=== PATIENT | female | born 1990 | race African-American/Black ===

== ENCOUNTER 2017-04-05 15:00 | Emergency (ER) | payer MEDICARE ==
[2017-04-05 15:46] LABS: #Basophils 0.2 thou/uL (0.0-0.2); #Eosinphils 0.1 thou/uL (0.0-0.7); #Lymphocytes 3.1 thou/uL (1.20-3.40); #Monocytes 0.4 thou/uL (0.11-0.59); #Neutrophils 5.3 thou/uL (1.40-6.50); %Basophils 1.8 % (0.0-1.0); %Eosinophils 0.8 % (0.0-10.0); %Lymphocytes 34.4 % (21.0-51.0); %Monocytes 4.7 % (0.0-10.0); Hematocrit 44.2 % (36.0-47.0); Mean Platelet Volume 8.4 fL (7.4-10.4); Red Blood Cell (RBC) Count 4.34 mill/uL (4.20-5.40); White Blood Cell (WBC) Count 9.1 thou/uL (4.8-10.8)
[2017-04-05 16:06] LABS: ALT (SGPT) 11 U/L (8-55); AST (SGOT) 15 U/L (5-34); Alkaline Phosphatase 77 U/L (40-150); Anion Gap 13 mmol/L (10-20); BUN (Urea Nitrogen) 10 mg/dL (7.0-18.7); Bilirubin, Total 0.6 mg/dL (0.2-1.2); Calc. Creatinine Clearance 0 mL/min (70-130); Calcium 9.7 mg/dL (7.8-10.44); Carbon Dioxide 25 mmol/L (22-29); Chloride 103 mmol/L (98-107); Estimated GFR-MDRD Greater than 90; Globulin 3.2 g/dL (2.4-3.5); Protein, Total 7.6 g/dL (6.0-8.3)
[2017-04-05 16:12] LABS: Bilirubin Negative (Negative); Blood, Urine Negative (Negative); Glucose, Urine (Dipstick) Negative (Negative); Ketone, Urine 40 mg/dL (Negative); Nitrite Negative (Negative); Protein, Urine (Dipstick) Negative (Neg-Trace); Urobilinogen 0.2 mg/dL (0.2-1.0)
[2017-04-05] MEDS ORDERED: Ondansetron HCl/PF 4 MG/2 ML Vial ONE (16:44)
== END 2017-04-05 18:15 | disposition home or self-care (01) ==
LOC: ERS 15:00
DX: E86.0 Dehydration (principal); R19.7 Diarrhea, unspecified; R11.2 Nausea with vomiting, unspecified; R10.33 Periumbilical pain; F31.9 Bipolar disorder, unspecified; F17.210 Nicotine dependence, cigarettes, uncomplicated
CPT/HCPCS: 36415; 80053; 81003; 81025; 85025; 87480; 87491; 87510; 87591; 87660; 96361; 96374; J2405

== ENCOUNTER 2017-10-30 19:22 | Emergency (ER) | payer MEDICARE ==
[2017-10-30] MEDS ORDERED: Ketorolac Tromethamine 30 MG/ML VIAL ONE (20:22)
== END 2017-10-30 22:20 | disposition home or self-care (01) ==
LOC: ERS 19:22
DX: K11.5 Sialolithiasis (principal); F31.9 Bipolar disorder, unspecified; Z87.891 Personal history of nicotine dependence
CPT/HCPCS: 96372; J1885

== ENCOUNTER 2018-07-08 22:48 | Emergency (ER) | payer MEDICARE, OTHER ==
[2018-07-08 23:14] LABS: #Basophils 0.1 thou/uL (0.0-0.2); #Eosinphils 0.1 thou/uL (0.0-0.7); #Lymphocytes 2.5 thou/uL (1.20-3.40); #Monocytes 0.5 thou/uL (0.11-0.59); #Neutrophils 7.4 thou/uL (1.40-6.50); %Basophils 1.1 % (0.0-1.0); %Eosinophils 1.3 % (0.0-10.0); %Lymphocytes 23.5 % (21.0-51.0); %Monocytes 5.1 % (0.0-10.0); Hemoglobin 13.3 g/dL (12.0-16.0); Mean Corpuscular Hemoglobin 34.1 pg (27.0-31.0); Mean Corpuscular Volume 97.3 fL (78.0-98.0); Platelet Count 260 thou/uL (130-400); White Blood Cell (WBC) Count 10.7 thou/uL (4.8-10.8)
[2018-07-08 23:26] LABS: BHCG - Serum POSITIVE (NEGATIVE); Pregs Control Background? CLEAR/WHITE (CLR/WHITE); Pregs Control Bar Appear? YES (CONTROL BAR)
[2018-07-08 23:35] LABS: Bilirubin Negative (Negative); Blood, Urine Negative (Negative); Clarity CLEAR (Clear); Glucose, Urine (Dipstick) Negative (Negative); Leukocyte Small (Negative); Nitrite Negative (Negative); Protein, Urine (Dipstick) Negative (Neg-Trace); Specific Gravity, Urine 1.027 (1.002-1.036)
[2018-07-08 23:38] LABS: ALT (SGPT) 13 U/L (8-55); AST (SGOT) 18 U/L (5-34); Albumin 4.4 g/dL (3.5-5.0); Alkaline Phosphatase 61 U/L (40-150); Anion Gap 12 mmol/L (10-20); BUN (Urea Nitrogen) 12 mg/dL (7.0-18.7); Bilirubin, Total 0.2 mg/dL (0.2-1.2); Calc. Creatinine Clearance 0 mL/min (70-130); Calcium 9.6 mg/dL (7.8-10.44); Carbon Dioxide 23 mmol/L (22-29); Chloride 104 mmol/L (98-107); Estimated GFR-MDRD Greater than 90; Globulin 3.1 g/dL (2.4-3.5); Glucose 101 mg/dL (70-105); Potassium 3.6 mmol/L (3.5-5.1); Protein, Total 7.5 g/dL (6.0-8.3); Sodium 135 mmol/L (136-145)
[2018-07-08 23:39] LABS: Bacteria/HPF Rare-Few HPF (None Seen); Hyaline Casts/LPF 0-3 HYALINE CAST LPF (0-3 Hyaline); RBC/HPF 0-3 HPF (0-3); Squamous Epithelial 0-3 HPF (0-3)
== END 2018-07-08 23:55 | disposition home or self-care (01) ==
LOC: ERS 22:48
DX: O21.9 Vomiting of pregnancy, unspecified (principal); O99.89 Other specified diseases and conditions complicating pregnancy, childbirth and the puerperium; O99.341 Other mental disorders complicating pregnancy, first trimester; F31.9 Bipolar disorder, unspecified; Z3A.01 Less than 8 weeks gestation of pregnancy; Z87.891 Personal history of nicotine dependence
CPT/HCPCS: 36415; 80053; 81003; 81015; 84703; 85025; 99284

== ENCOUNTER 2018-08-20 07:38 | Emergency (ER) | payer MEDICARE, OTHER ==
[2018-08-20 08:07] LABS: #Basophils 0.1 thou/uL (0.0-0.2); #Eosinphils 0.1 thou/uL (0.0-0.7); #Lymphocytes 1.9 thou/uL (1.20-3.40); #Monocytes 0.5 thou/uL (0.11-0.59); #Neutrophils 7.1 thou/uL (1.40-6.50); %Basophils 0.9 % (0.0-1.0); %Eosinophils 1.1 % (0.0-10.0); %Lymphocytes 19.7 % (21.0-51.0); %Monocytes 5.2 % (0.0-10.0); %Neutrophils 73.1 % (42.0-75.0); Hemoglobin 12.8 g/dL (12.0-16.0); Mean Corpuscular HGB CONC 33.7 g/dL (32.0-36.0); Mean Corpuscular Hemoglobin 32.9 pg (27.0-31.0); Mean Corpuscular Volume 97.7 fL (78.0-98.0); Mean Platelet Volume 8.1 fL (7.4-10.4); Platelet Count 243 thou/uL (130-400); RBC Distribution Width 10.9 % (11.5-14.5); Red Blood Cell (RBC) Count 3.89 mill/uL (4.20-5.40); White Blood Cell (WBC) Count 9.8 thou/uL (4.8-10.8)
[2018-08-20 09:09] LABS: Bilirubin Negative (Negative); Blood, Urine Moderate (Negative); Clarity CLOUDY (Clear); Glucose, Urine (Dipstick) Negative (Negative); Leukocyte Moderate (Negative); Nitrite Negative (Negative); Protein, Urine (Dipstick) Negative (Neg-Trace); Specific Gravity, Urine 1.018 (1.002-1.036)
[2018-08-20 09:11] LABS: Bacteria/HPF Rare-Few HPF (None Seen); Pathc Cast-AUWi Flag 0.29 (0-2.49); Squamous Epithelial 0-3 HPF (0-3)
[2018-08-20 09:39] LABS: Hyaline Casts/LPF 0-3 HYALINE CAST LPF (0-3 Hyaline)
[2018-08-20 10:13] LABS: ALT (SGPT) Less than 7 U/L (8-55); AST (SGOT) 12 U/L (5-34); Albumin 3.7 g/dL (3.5-5.0); Alkaline Phosphatase 51 U/L (40-150); Anion Gap 13 mmol/L (10-20); BUN (Urea Nitrogen) 7 mg/dL (7.0-18.7); Bilirubin, Total 0.2 mg/dL (0.2-1.2); Calc. Creatinine Clearance 0 mL/min (70-130); Calcium 9.4 mg/dL (7.8-10.44); Carbon Dioxide 18 mmol/L (22-29); Chloride 109 mmol/L (98-107); Estimated GFR-MDRD Greater than 90; Globulin 2.7 g/dL (2.4-3.5); Glucose 80 mg/dL (70-105); Potassium 3.4 mmol/L (3.5-5.1); Protein, Total 6.4 g/dL (6.0-8.3); Sodium 137 mmol/L (136-145)
--- NOTE | 2018-08-20 11:15 | ULT ---
TRANSVAGINAL PELVIC ULTRASOUND: HISTORY: Vaginal bleeding. Twelve weeks' . COMPARISON: None. TECHNIQUE: Real-time, armas-scale, color Doppler, and spectral analysis of the gravid uterus was performed with a transabdominal approach. FINDINGS: There is a single viable intrauterine with an average ultrasound age of 12 weeks 5 days. E stimated date of delivery 02/27/2019. [place]-rump length is 6.35 cm (12 weeks 5 days). heart r ate is documented at 152 beats per minute. At the free edge of the placenta, there is a sonolucent hypoechoic focus, measuring up to 2.3 cm, sug gesting a marginal abruption. Gestational sac appears normal. The ovaries are not well seen. IMPRESSION: Viable single intrauterine with a small marginal abruption, measuring 2.2 cm, which is sono lucent, suggesting chronic or resolving hematoma. POS: [facility]
== END 2018-08-20 10:32 | disposition home or self-care (01) ==
LOC: ERS 07:38
DX: O45.91 Premature separation of placenta, unspecified, first trimester (principal); O20.9 Hemorrhage in early pregnancy, unspecified; O99.341 Other mental disorders complicating pregnancy, first trimester; F31.9 Bipolar disorder, unspecified; Z87.891 Personal history of nicotine dependence; Z3A.12 12 weeks gestation of pregnancy
CPT/HCPCS: 36415; 76856; 80053; 81003; 81015; 84702; 85025; 86900; 86901; 87086; 93976

== ENCOUNTER 2018-08-20 20:46 | Emergency (ER) | payer MEDICARE, OTHER ==
[2018-08-20 21:14] LABS: #Basophils 0.1 thou/uL (0.0-0.2); #Eosinphils 0.2 thou/uL (0.0-0.7); #Monocytes 0.4 thou/uL (0.11-0.59); #Neutrophils 6.1 thou/uL (1.40-6.50); %Basophils 0.9 % (0.0-1.0); %Eosinophils 1.8 % (0.0-10.0); %Lymphocytes 30.3 % (21.0-51.0); %Monocytes 3.9 % (0.0-10.0); Hemoglobin 12.4 g/dL (12.0-16.0); Mean Corpuscular HGB CONC 33.7 g/dL (32.0-36.0); Mean Corpuscular Hemoglobin 32.7 pg (27.0-31.0); Mean Corpuscular Volume 96.8 fL (78.0-98.0); Mean Platelet Volume 8.1 fL (7.4-10.4); Platelet Count 226 thou/uL (130-400); RBC Distribution Width 10.9 % (11.5-14.5); Red Blood Cell (RBC) Count 3.79 mill/uL (4.20-5.40); White Blood Cell (WBC) Count 9.7 thou/uL (4.8-10.8)
== END 2018-08-20 22:09 | disposition home or self-care (01) ==
LOC: ERS 20:46
DX: O20.0 Threatened abortion (principal); O99.341 Other mental disorders complicating pregnancy, first trimester; F31.9 Bipolar disorder, unspecified; Z87.891 Personal history of nicotine dependence; Z79.899 Other long term (current) drug therapy
CPT/HCPCS: 36415; 76856; 80053; 81003; 81015; 84702; 85025; 86850; 86900; 86901; 87086; 93976; 99284

== ENCOUNTER 2018-09-05 12:47 | Emergency (ER) | payer MEDICARE, OTHER ==
[2018-09-05 14:48] LABS: #Basophils 0.1 thou/uL (0.0-0.2); #Eosinphils 0.1 thou/uL (0.0-0.7); #Lymphocytes 2.6 thou/uL (1.20-3.40); #Monocytes 0.5 thou/uL (0.11-0.59); #Neutrophils 7.7 thou/uL (1.40-6.50); %Basophils 0.7 % (0.0-1.0); %Eosinophils 0.9 % (0.0-10.0); %Lymphocytes 23.8 % (21.0-51.0); %Monocytes 4.6 % (0.0-10.0); Hemoglobin 11.7 g/dL (12.0-16.0); Mean Corpuscular HGB CONC 34.1 g/dL (32.0-36.0); Mean Corpuscular Hemoglobin 33.3 pg (27.0-31.0); Mean Corpuscular Volume 97.6 fL (78.0-98.0); Mean Platelet Volume 8.8 fL (7.4-10.4); Platelet Count 210 thou/uL (130-400); White Blood Cell (WBC) Count 10.9 thou/uL (4.8-10.8)
[2018-09-05 14:55] LABS: Bilirubin Negative (Negative); Blood, Urine Negative (Negative); Clarity CLEAR (Clear); Glucose, Urine (Dipstick) Negative (Negative); Leukocyte Small (Negative); Nitrite Negative (Negative); Protein, Urine (Dipstick) Negative (Neg-Trace); Specific Gravity, Urine 1.025 (1.002-1.036)
[2018-09-05 14:57] LABS: Bacteria/HPF None Seen HPF (None Seen); Hyaline Casts/LPF 4-6 HYALINE CAST LPF (0-3 Hyaline); Pathc Cast-AUWi Flag 0.68 (0-2.49)
--- NOTE | 2018-09-05 15:56 | ULT ---
OBSTETRICAL ULTRASOUND: INDICATION: Suprapubic and right lower quadrant abdominal pain. COMPARISON: Prior pelvic ultrasound dated 08/20/2018. FINDINGS: There is a single live intrauterine gestation in variable presentation. The placenta is anterior in location and appears to be low-lying. The distal tip of the anterior placenta is difficult to fully see but does approach the cervical internal os and potentially may cover portions of the internal os itself, particularly on image 3. Cardiac activity is noted at 152 b.p.m. The small placental lucency involving the fundus of the uterus adjacent to the superior margin of the anterior placenta has increased in size and now measures 3.5 x 2.2 x 3.1 cm. The cervical length was approximately 4 cm. Biparietal diameter was 2.97 cm giving estimated gestational age of 15 weeks and 3 days (70th percent ile). The head circumference was 11.21 cm giving estimated gestational age of 15 weeks and 3 days (64th per centile). The abdominal circumference was 9.27 cm giving a gestational age of 15 weeks and 3 days (74th percent ile). The femur length was 1.18 cm giving estimated gestational age of 15 weeks and 3 days (66th percentile ). The average gestational age by ultrasound of 15 weeks and 2 days and estimated due date of 02/25/2019. IMPRESSION: 1. Single live intrauterine gestation with dates as above. 2. Anterior placenta with findings suggesting either a marginal placenta or a partial placenta previ a. A followup examination is recommended for further evaluation. 3. Enlarging cystic lesion seen along the superior margin of the superior aspect of the placenta. D ifferential considerations include a slightly enlarging venous george or a small placental cyst. Maria Guadalupe nued followup is recommended. POS: [facility]
[2018-09-05] MEDS ORDERED: Ondansetron PF 4 MG/2 ML Vial ONE (16:14)
[2018-09-05] MEDS ORDERED: Morphine 4 MG/ML VIAL ONE (16:14)
[2018-09-05 16:21] LABS: ALT (SGPT) 8 U/L (8-55); AST (SGOT) 14 U/L (5-34); Albumin 3.7 g/dL (3.5-5.0); Alkaline Phosphatase 47 U/L (40-150); Anion Gap 14 mmol/L (10-20); BUN (Urea Nitrogen) 8 mg/dL (7.0-18.7); Bilirubin, Total 0.3 mg/dL (0.2-1.2); Calc. Creatinine Clearance 0 mL/min (70-130); Calcium 9.1 mg/dL (7.8-10.44); Carbon Dioxide 19 mmol/L (22-29); Chloride 106 mmol/L (98-107); Estimated GFR-MDRD Greater than 90; Globulin 2.3 g/dL (2.4-3.5); Glucose 68 mg/dL (70-105); Potassium 3.6 mmol/L (3.5-5.1); Sodium 135 mmol/L (136-145)
--- NOTE | 2018-09-05 18:40 | MRI ---
MRI ABDOMEN WITHOUT CONTRAST 09/05/18 HISTORY: Lower pelvic pain since 9 a.m. COMPARISON: None. FINDINGS: The appendix is retrocecal and is normal and has a craniad course. Small T2 hyperintense, T1 peripher ally hyperintense mass at the left craniad margin of the placenta likely a resolving and resorbing pl acenta abruption as previously described back in August. Aortic contour is nonaneurysmal. No periaortic adenopathy. The placental edge is away from the cervix approximately 5 cm. No placenta previa or low lying placen ta. There is what appears to be a posterior uterine body fibroid. IMPRESSION: 1. Normal appendix. 2. Resolving craniad left sided placental margin abruption. 3. No placenta previa. POS: HOME
== END 2018-09-05 18:58 | disposition home or self-care (01) ==
LOC: ERS 12:47
DX: O26.852 Spotting complicating pregnancy, second trimester (principal); O34.11 Maternal care for benign tumor of corpus uteri, first trimester; D25.9 Leiomyoma of uterus, unspecified; F31.9 Bipolar disorder, unspecified; Z87.891 Personal history of nicotine dependence; Z79.899 Other long term (current) drug therapy; Z3A.15 15 weeks gestation of pregnancy
CPT/HCPCS: 36415; 74181; 76805; 80053; 81003; 81015; 84702; 85025; 86900; 86901; 87086; 96374; 96375; J2270; J2405

== ENCOUNTER 2019-01-02 11:31 | Day surgery (SDC) | payer MEDICARE, OTHER ==
[2019-01-02 11:53] VITALS: BMI 31.8
--- NOTE | 2019-01-02 13:41 | ULT ---
US [facility] History: 32 weeks intrauterine . Bleeding. Comparison: None. Findings: Real-time grayscale, color, and spectral analysis of the pelvis performed transabdominal ap proach. Cervix is closed measuring 4.2 cm in length. The placenta is anterior. No placenta previa. The presen tation is cephalic. Heart rate documented at 135 bpm. Adequate amniotic fluid. Average ultrasound age is 32 weeks 0 day with estimated date of delivery February 27, 2019. Estimated f etal weight is 4 lbs. 1 oz., 39th percentile Biometry: Biparietal diameter: 7.92 cm, 31 weeks 6 day Head circumference: 29.15 cm, 32 week 1 day Abdominal circumference: 27.35 cm, 21 week 3 day Femur length: 6.28 cm, 32 week 4 day AUDREY: 9.4 cm Impression: Normal single viable intrauterine .
--- NOTE | 2019-01-02 21:33 | SS ---
DATE OF ADMISSION: 01/02/2019 DATE OF DISCHARGE: 01/02/2019 REGULAR PHYSICIAN: Rissa Antonio DO EVALUATING PHYSICIAN: Dennis Juan MD CHIEF COMPLAINT: Spotting at home. HISTORY OF PRESENT ILLNESS: Ms. Kelsey is a 28-year-old white G2, P1-0-0-1 with an estimated date of confinement of 02/28/2019, who presents complaining of light spotting over the last 24 hours. She does note occasional cramping. She denies ruptured membranes. Her care has been with Dr. Antonio and has been complicated by first and second trimester bleeding. She states her last ultrasound was 4 weeks ago and she said it was normal. PAST OBSTETRICAL HISTORY: Vaginal delivery x1 at term. PAST MEDICAL HISTORY: None. PAST SURGICAL HISTORY: None. CURRENT MEDICATIONS: vitamins, iron, and Diclegis p.r.n. ALLERGIES: VANCOMYCIN, WHICH SHE STATES MAKES HER ITCH. SOCIAL HISTORY: Denies tobacco, alcohol, or drug use. FAMILY HISTORY: Unremarkable. REVIEW OF SYSTEMS: Denies nausea, vomiting, fever, chills, ruptured membranes, or decreased movement. PHYSICAL EXAMINATION: VITAL SIGNS: In triage, her vital signs are stable and she is afebrile. GENERAL: She is pleasant and in no distress. ABDOMEN: Soft, nontender, and gravid. heart tones were stable. No regular uterine contractions were seen. Ultrasound demonstrates a cephalic fetus with an anterior placenta and there is no evidence of placenta previa. The cervix is 4.2 cm in length and there is adequate amniotic fluid. Biometry is consistent with her stated gestational age. Sterile speculum exam done after the ultrasound demonstrates a closed cervix with no blood in the vagina. ASSESSMENT: 1. Thirty-two week intrauterine . 2. No evidence of third trimester bleeding at this time. PLAN: The patient will be dismissed to home. She was given precautions and reassured. Dr. Antonio was notified. She states that she has an appointment with Dr. Antonio next week. Job ID: [id number]
== END 2019-01-02 13:57 | disposition home health service (06) ==
LOC: L&D/OP 11:31
PROVIDERS: ATTEND Obstetrics & Gynecology
DX: O26.853 Spotting complicating pregnancy, third trimester (principal); Z3A.32 32 weeks gestation of pregnancy; Z79.899 Other long term (current) drug therapy; Z88.1 Allergy status to other antibiotic agents
CPT/HCPCS: 76815; 99283

== ENCOUNTER 2019-02-09 13:08 | Day surgery (SDC) | payer MEDICARE, OTHER ==
[2019-02-09 13:44] VITALS: BP 139/78; TEMP 98
[2019-02-09 13:48] VITALS: BMI 31.8
[2019-02-09] MEDS ORDERED: hydrALAZINE 20 MG/ML VIAL SLOW IVP PRN (14:25)
[2019-02-09] MEDS ORDERED: Acetaminophen 500 MG TAB PO SCH (14:30)
--- NOTE | 2019-02-09 14:31 | PDOC.EVN ---
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 Had on/off REYNOSO recently. No VB, no DAGMAR pain, unclear "spots in eyes". She was told of these sxs at last eval last week, with eval negative then. Review of Systems: Contipation, white persistent vag dsch, no gush of fluid Past medical: anxiety, no meds; stable Social: noted pos THC use Surgical: T&A Physical: 139/78 128/78 afebrile PAMELA abd soft NT CX pending Monitors: FHTS cat 1/reactive; noCTX on toco Assessment and plan: 37 weeks 2 days here for BP check, BPs ok so edie 1. I have ordered CMP, CBC, Urine protein/CR ratio 2. Serial BPs 3. Tylenol for REYNOSO at this time 4. NST reactive
--- NOTE | 2019-02-09 14:31 | PDOC.FPROB ---
FMR OB H&P: HPI - History of Present Illness Chief Complaint: Headache History of Present Illness: 28 yo @ 37.2 wk presents with concern for blood pressure. Notes BP of 125/95, 118/86 at home in addition to headache, intermittent stars in vision, and dizziness this morning. She notes she was told to check BP BID and that in clinic last week she had BP systolic in 160s prompting a pre-E workup that was negative. Do not have access to these records. Denies swelling, abdominal pain. dysuria, VB. Reports clear/white vaginal discharge that is unchanged throughout . Primary Care Physician: Paco FMR OB H&P: Current - Care : 2 Para: 1 Gestational age: 37.2 Due date: 02/28/2019 - OB Labs Blood type: A RH: positive Antibody Screen: negative HIV: negative RPR: negative HepBsAg: negative Rubella: immune Urine drug screen: positive (THC) Gonorrhea: negative Chlamydia: negative Pap Smear: NILM 1 hour gtt: 115 GBS: negative FMR OB H&P: History - Past Medical History PMH: Anxiety - OB History OB History: Subchorionic hemorrhage in 1st trimester - Surgical History Sx History: Tonsillectomy - Social History Social History: Denies current tobacco, alcohol, drug use. Hx of THC use. Former smoker. - Family History Family History: Nephew had Maybell de Arias syndrome FMR OB H&P: Medications - Current Home Medications: Medication Instructions Recorded Confirmed Type Doxylamine Succinate/Vit B6 1 tab PO PRN PRN 01/02/19 02/09/19 History [Jan SINGLETON] Ferrous Sulfate 324 mg PO DAILY 02/09/19 02/09/19 History Vitamin 1 tablet PO DAILY 02/09/19 02/09/19 History Allergies/Adverse Reactions: Allergies Allergy/AdvReac Type Severity Reaction Status Date / Time vancomycin Allergy Intermediate Hives Verified 01/02/19 11:54 FMR OB H&P: ROS - Review of Systems General: denies: fever/chills Eyes: reports: vision changes. denies: double vision ENT: denies: nasal congestion Cardiovascular: denies: palpitation, edema Respiratory: denies: congestion, shortness of breath Gastrointestinal: reports: constipation. denies: abdominal pain, nausea, vomiting, diarrhea Genitourinary (Female): reports: vaginal discharge. denies: dysuria, vaginal pain, vaginal bleeding, contractions Musculoskeletal: denies: pain, swelling Neurologic: reports: headache. denies: weakness Integumentary: denies: rash, lesions Psychological: reports: anxiety. denies: depression FMR OB H&P: Vital Signs - Maternal Vital signs: Vital Signs - First Documented Temp Pulse Resp BP 98.0 F 98 18 139/78 02/09/19 13:26 02/09/19 13:26 02/09/19 13:26 02/09/19 13:26 - Heart Tones Baseline: 140 Variability: moderate Acceleration: present Deceleration: absent Rew contractions every: none FMR OB H&P: Physical Exam - Physical Exam General: NAD (anxious) HEENT: normocephalic and atraumatic Heart: RRR, normal S1/S2, no edema General: CTAB, no respiratory distress, no wheezing Abdomen: soft, gravid, non-tender Skin: good tugor, capillary refill <2 seconds Lymphatic: no unusual bruising or bleeding Psychiatric: intact recent and remote memory - Pelvic Exam SVE: 1/thick/-2, posterior FMR OB H&P: A/P - Problem List (1) Intrauterine Current Visit: Yes Status: Acute Code(s): Z34.90 - ENCNTR FOR SUPRVSN OF NORMAL , UNSP, UNSP TRIMESTER Discussion: Date/Time: 02/09/19 1420 sIUP - concern for BP - initial BPs here are 139/78, 128/78, will continue to monitor - pending CBC, CMP, urine studies for pre-e workup - will give tylenol for headache - FHT reassuring Anxiety - previously on zoloft, pt reports well controlled without medication THC use in Hx subchorionic hemorrhage in 1st trimester Patient has not had any severe range pressures here or at home today. Will monitor with serial BPs and await lab results. IOL scheduled for Sunday. This H&P was discussed with Dr. Way who agrees with the above documentation and plan.
[2019-02-09 14:43] LABS: #Basophils 0.1 thou/uL (0.0-0.2); #Eosinphils 0.1 thou/uL (0.0-0.7); #Lymphocytes 2.5 thou/uL (1.20-3.40); #Monocytes 0.8 thou/uL (0.11-0.59); #Neutrophils 8.5 thou/uL (1.40-6.50); %Basophils 0.7 % (0.0-1.0); %Eosinophils 1.2 % (0.0-10.0); %Lymphocytes 20.9 % (21.0-51.0); %Monocytes 6.3 % (0.0-10.0); Hemoglobin 11.9 g/dL (12.0-16.0); Mean Corpuscular HGB CONC 34.8 g/dL (32.0-36.0); Mean Corpuscular Hemoglobin 33.1 pg (27.0-31.0); Mean Corpuscular Volume 95.2 fL (78.0-98.0); Mean Platelet Volume 8.6 fL (7.4-10.4); Platelet Count 206 thou/uL (130-400); RBC Distribution Width 11.7 % (11.5-14.5); Red Blood Cell (RBC) Count 3.61 mill/uL (4.20-5.40)
[2019-02-09 15:04] LABS: ALT (SGPT) 8 U/L (8-55); AST (SGOT) 12 U/L (5-34); Albumin 3.3 g/dL (3.5-5.0); Alkaline Phosphatase 113 U/L (40-150); Anion Gap 13 mmol/L (10-20); BUN (Urea Nitrogen) 7 mg/dL (7.0-18.7); Bilirubin, Total 0.3 mg/dL (0.2-1.2); Calc. Creatinine Clearance 213 mL/min (70-130); Carbon Dioxide 21 mmol/L (22-29); Chloride 105 mmol/L (98-107); Estimated GFR-MDRD Greater than 90; Globulin 2.9 g/dL (2.4-3.5); Glucose 76 mg/dL (70-105); Potassium 3.8 mmol/L (3.5-5.1); Protein, Total 6.2 g/dL (6.0-8.3); Sodium 135 mmol/L (136-145)
[2019-02-09 15:30] LABS: Creatinine, Urine 137.69 mg/dL (47-110)
--- NOTE | 2019-02-09 15:43 | PDOC.EVN ---
Event Note - Event Note Event Note: Labs and urine studies reviewed and wnl. No elevated BPs, consistently around 115-120 systolic. No concern for Pre-E based on evaluation this afternoon. Patient given reassurance and return precautions given. May take tylenol prn and miralax for constipation. Recommended patient follow up with Dr. Singh tomorrow. She already has IOL scheduled for Sunday night.
--- NOTE | 2019-02-09 15:44 | PDOC.EVN ---
Event Note - Event Note Event Note: Labs ok BPs ok OK for recheck in 24 hours
== END 2019-02-09 15:46 | disposition home or self-care (01) ==
LOC: L&D/OP 13:08
PROVIDERS: ATTEND Obstetrics & Gynecology
DX: O99.89 Other specified diseases and conditions complicating pregnancy, childbirth and the puerperium (principal); R51 Headache; R42 Dizziness and giddiness; N89.8 Other specified noninflammatory disorders of vagina; O99.343 Other mental disorders complicating pregnancy, third trimester; F41.9 Anxiety disorder, unspecified; Z87.59 Personal history of other complications of pregnancy, childbirth and the puerperium; Z87.891 Personal history of nicotine dependence; Z3A.37 37 weeks gestation of pregnancy
CPT/HCPCS: 36415; 80053; 82570; 84156; 85025; 99284

== ENCOUNTER 2019-02-11 02:04 | Inpatient (IN) | payer MEDICARE, OTHER ==
[2019-02-11 02:45] VITALS: BMI 33.0
[2019-02-11] MEDS: Lactated Ringer's 1,000 ML IV SCH ×3 (03:10→13:09)
[2019-02-11] MEDS ORDERED: Butorphanol Tartrate 1 MG/ML VIAL ONE (04:56)
[2019-02-11] MEDS: Butorphanol Tartrate 1 MG/ML VIAL SLOW IVP PRN ×3 (05:01→08:20)
--- NOTE | 2019-02-11 06:32 | PDOC.LDHP ---
Labor and Delivery H&P Chief complaint: contractions HPI: with mod variables 3-4 cm LOP presentation. had induction sched for tomorrow for gest htn Current gestational age (weeks): 37 Due date: 02/28/19 Dating criteria: last menstrual period, first trimester ultrasound Grav: 2 Para: 1 Current complications: gestational hypertension Abnormal US findings: No Current medications: pre- vitamins Allergies/Adverse Reactions: Allergies Allergy/AdvReac Type Severity Reaction Status Date / Time vancomycin Allergy Intermediate Hives Verified 01/02/19 11:54 Social history: drug use (thc in ) - Physical Exam Vital signs reviewed and normal: yes General: NAD, resting, breathing through contractions Heart: RRR Lungs: CTAB Abdomen: NTTP Extremeties: no edema FHT: category 2, variable decelerations [place] contractions every: 5 - Vaginal Exam cm dilated: 3 Effacement: 75% Station: -3 - OB Labs Blood type: A RH: positive Antibody Screen: negative HIV: negative RPR: negative HEPSAg: negative 1 hour GCT: negative GBS: negative Urine drug screen: positive Rubella: immune - Assessment L&D Assessment: term patient in labor - Plan Plan: admit to L&D, labor augmentation if indicated, anesthesia consult for pain management
[2019-02-11] MEDS ORDERED: hydrALAZINE 20 MG/ML VIAL SLOW IVP PRN ×2 (06:41→10:14)
[2019-02-11] MEDS ORDERED: HYDROcodone/Acetaminophen 5/325 mg Tablet PO PRN ×2 (06:41)
[2019-02-11] MEDS ORDERED: NS / Oxytocin 40 units/1000ml 1,000 ML IV PRN (06:41)
[2019-02-11] MEDS ORDERED: Lidocaine 1% (PF) 30 ML VIAL SC PRN (06:41)
[2019-02-11] MEDS ORDERED: NS w/ Oxytocin 10 units 500 ML IV SCH (06:41)
[2019-02-11] MEDS ORDERED: Promethazine HCl 25 MG/ML VIAL IM PRN (06:41)
[2019-02-11] MEDS ORDERED: Ondansetron PF 4 MG/2 ML Vial IVP PRN (06:41)
[2019-02-11] MEDS ORDERED: Ibuprofen 800 MG TAB PO PRN (06:41)
[2019-02-11] MEDS ORDERED: Lactated Ringer's 1,000 ML IV SCH (06:41)
[2019-02-11 07:24] LABS: Hemoglobin 13.2 g/dL (12.0-16.0); Mean Corpuscular HGB CONC 34.1 g/dL (32.0-36.0); Mean Corpuscular Hemoglobin 32.1 pg (27.0-31.0); Mean Corpuscular Volume 94.2 fL (78.0-98.0); Mean Platelet Volume 10.1 fL (7.4-10.4); Platelet Count 275 thou/uL (130-400); RBC Distribution Width 11.8 % (11.5-14.5); Red Blood Cell (RBC) Count 4.11 mill/uL (4.20-5.40); White Blood Cell (WBC) Count 16.1 thou/uL (4.8-10.8)
[2019-02-11 08:03] LABS: Hep B Surf Ag Non-Reactive S/CO (NonReactive); Syphilis Antibody Nonreactive (Nonreactive); Syphilis Antibody Index 0.04 S/CO (<1.00 Non-Reactive)
--- NOTE | 2019-02-11 09:51 | PDOC.OPDEL ---
OB Operative/Delivery Note Delivery Dr/Surgeon: Rissa Antonio DO Pre-Delivery Diagnosis: active labor Procedure/Post Delivery Dx: spontaneous vaginal delivery Weeks gestation: 37 Anesthesia: none - Findings A Sex: male - 1 min: 7 - 5 min: 9 - Additional Findings/Plan Placenta delivered: spontaneous Repaired Obstetrical Laceration: other (small right labial laceration not repaired because hemostatic and no anesthesia) Estimated blood loss: EBL 50 cc Compilations/Other Findings: Infant in KIKO position Nuchal cord x1 Normal appearing placenta Post delivery plan: routine recovery
[2019-02-11 10:09] LABS: pH (Cord, venous) 7.41 (7.32-7.43)
[2019-02-11] MEDS ORDERED: Lanolin Ointment 7 GM TUBE TOP PRN (10:14)
[2019-02-11] MEDS ORDERED: NS / Oxytocin 40 units/1000ml 1,000 ML IV SCH (10:14)
[2019-02-11] MEDS ORDERED: Bisacodyl 10 MG SUPP PR PRN (10:14)
[2019-02-11] MEDS ORDERED: Zolpidem Tartrate 5 MG TAB PO PRN (10:14)
[2019-02-11] MEDS ORDERED: Methylergonovine 0.2 MG/ML VIAL IM PRN (10:14)
[2019-02-11] MEDS ORDERED: Preparation H Ointment 28 GM TUBE PR PRN (10:14)
[2019-02-11] MEDS ORDERED: diphenhydrAMINE 25 MG CAP PO PRN (10:14)
[2019-02-11] MEDS ORDERED: Benzocaine-Menthol 82.5 ML CAN TOP PRN (10:14)
[2019-02-11] MEDS ORDERED: Misoprostol 200 MCG TAB VAG PRN (10:14)
[2019-02-11] MEDS ORDERED: Milk Of Magnesia 30 ML UDCUP PO PRN (10:14)
[2019-02-11 11:52] LABS: Amphetamine Not Detected (NotDetected); Barbiturates Screen Not Detected (NotDetected); Benzodiazepine Screen Not Detected (NotDetected); Cocaine Metabolite Screen Not Detected (NotDetected); Medtox Control Line Valid? VALID (VALID); Medtox Reader # READER 4; Methadone Not Detected (NotDetected); Methamphetamine Not Detected (NotDetected); Opiate Screen Not Detected (NotDetected); Oxycodone Screen Not Detected (NotDetected); Phencyclidine (PCP) Not Detected (NotDetected); THC/Cannabinoid Screen Not Detected (NotDetected); Tricyclic Screen Not Detected (NotDetected)
[2019-02-11] MEDS: Ibuprofen 800 MG TAB PO SCH ×2 (12:58→21:01)
[2019-02-11] MEDS: Docusate Calcium (SURFAK) 240 MG CAP PO SCH (21:01)
[2019-02-12] MEDS: HYDROcodone/Acetaminophen 5/325 mg Tablet PO PRN ×2 (05:02→12:33)
[2019-02-12] MEDS: Ibuprofen 800 MG TAB PO SCH ×3 (05:02→20:59)
[2019-02-12 05:51] LABS: Hemoglobin 11.6 g/dL (12.0-16.0); Mean Corpuscular HGB CONC 33.9 g/dL (32.0-36.0); Mean Corpuscular Volume 94.4 fL (78.0-98.0); Mean Platelet Volume 9.4 fL (7.4-10.4); Platelet Count 203 thou/uL (130-400); RBC Distribution Width 11.8 % (11.5-14.5); Red Blood Cell (RBC) Count 3.63 mill/uL (4.20-5.40); White Blood Cell (WBC) Count 21.2 thou/uL (4.8-10.8)
[2019-02-12] MEDS: Lactated Ringer's 1,000 ML IV SCH ×3 (06:13→16:49)
--- NOTE | 2019-02-12 08:03 | PDOC.PP ---
Post Progress Note Post Day #: 1 Subjective: No concerns. Minimal pain and lochia. Primarily formula feeding. Does not plan to continue breast feeding. PO intake tolerated: yes Flatus: yes Ambulation: yes Vital Signs (12 hours) Temp Pulse Resp BP Pulse Ox 02/12/19 04:55 97.9 F 77 18 116/77 02/12/19 00:00 97.4 F L 95 18 130/72 02/11/19 21:00 98 Weight Weight 205 lb - Physical Examination General: NAD Cardiovascular: RRR Respiratory: non-labored breathing Abdominal: no distention, appropriately TTP Fundus firm & at: below umbilics Extremities: negative homans (B) Neurological: no gross focal deficits Psychiatric: A&Ox3, normal affect Result Diagrams: 02/12/19 05:18 Additional Labs: Post Labs Blood Type A POSITIVE 02/11/19 02:41 Hep Bs Antigen Non-Reactive S/CO (NonReactive) 02/11/19 02:41 (1) (spontaneous vaginal delivery) Code(s): O80 - ENCOUNTER FOR FULL-TERM UNCOMPLICATED DELIVERY Status: Acute - Assessment/Plan PPD1 VSSAF- BPs wnl UDS negative Mild anemia, continue PNV Plan for d/c home today with s/p circumcision
[2019-02-12] MEDS: Docusate Calcium (SURFAK) 240 MG CAP PO SCH ×2 (09:26→20:59)
[2019-02-12] MEDS: Prenatal Vitamin 1 TAB PO SCH (09:26)
[2019-02-13] MEDS: Ibuprofen 800 MG TAB PO SCH (05:01)
--- NOTE | 2019-02-13 07:53 | PDOC.PP ---
Post Progress Note Post Day #: 2 Subjective: No concerns. Minimal pain and moderate lochia. D/C held due to baby's phototherapy. PO intake tolerated: yes Flatus: yes Ambulation: yes Vital Signs (12 hours) Pulse Ox 02/12/19 20:50 96 Weight Weight 205 lb - Physical Examination General: NAD Cardiovascular: RRR Respiratory: non-labored breathing Abdominal: no distention, appropriately TTP Fundus firm & at: below umbilicus Extremities: negative homans (B) Neurological: no gross focal deficits Psychiatric: A&Ox3, normal affect Result Diagrams: 02/12/19 05:18 Additional Labs: Post Labs Blood Type A POSITIVE 02/11/19 02:41 Hep Bs Antigen Non-Reactive S/CO (NonReactive) 02/11/19 02:41 (1) (spontaneous vaginal delivery) Code(s): O80 - ENCOUNTER FOR FULL-TERM UNCOMPLICATED DELIVERY Status: Acute - Assessment/Plan PPD2 VSSAF Plan for d/c home today with infant.
[2019-02-13 08:19] VITALS: BP 115/57; TEMP 98.2
[2019-02-13] MEDS: Prenatal Vitamin 1 TAB PO SCH (09:22)
[2019-02-13] MEDS: Docusate Calcium (SURFAK) 240 MG CAP PO SCH (09:23)
== END 2019-02-13 10:45 | disposition home or self-care (01) | DRG 807 ==
LOC: L&D/OP 02:04 → L&D 06:36 → 3SW 11:42
PROVIDERS: ADMIT Obstetrics & Gynecology; ATTEND Obstetrics & Gynecology
PROC: 10E0XZZ Delivery of Products of Conception, External Approach (ICD-10-PCS; principal; 2019-02-11)
DX: O13.4 Gestational [pregnancy-induced] hypertension without significant proteinuria, complicating childbirth (principal); Z37.0 Single live birth; Z3A.37 37 weeks gestation of pregnancy; O76 Abnormality in fetal heart rate and rhythm complicating labor and delivery; D64.9 Anemia, unspecified; O70.0 First degree perineal laceration during delivery; O90.81 Anemia of the puerperium
CPT/HCPCS: 36415; 80053; 80306; 82570; 82805; 84156; 85025; 85027; 86780; 86850; 86900; 86901; 87340; 99284; 99285; J0595; J2001

== ENCOUNTER 2019-12-08 06:48 | Observation (INO) | payer MEDICARE, OTHER ==
[2019-12-08 07:11] LABS: #Basophils 0.2 thou/uL (0.0-0.2); #Eosinphils 0.1 thou/uL (0.0-0.7); #Lymphocytes 2.5 thou/uL (1.20-3.40); #Monocytes 0.8 thou/uL (0.11-0.59); #Neutrophils 11.2 thou/uL (1.40-6.50); %Basophils 1.3 % (0.0-1.0); %Eosinophils 0.7 % (0.0-10.0); %Lymphocytes 16.8 % (21.0-51.0); %Monocytes 5.1 % (0.0-10.0); %Neutrophils 76.1 % (42.0-75.0); Hemoglobin 13.4 g/dL (12.0-16.0); Mean Corpuscular HGB CONC 32.1 g/dL (32.0-36.0); Mean Corpuscular Hemoglobin 31.9 pg (27.0-31.0); Mean Corpuscular Volume 99.4 fL (78.0-98.0); Mean Platelet Volume 8.5 fL (7.4-10.4); Platelet Count 265 thou/uL (130-400); RBC Distribution Width 11.7 % (11.5-14.5); Red Blood Cell (RBC) Count 4.19 mill/uL (4.20-5.40); White Blood Cell (WBC) Count 14.8 thou/uL (4.8-10.8)
[2019-12-08 07:18] LABS: BHCG - Serum Negative (NEGATIVE); Pregs Control Background? CLEAR/WHITE (CLR/WHITE); Pregs Control Bar Appear? YES (CONTROL BAR)
[2019-12-08 07:29] LABS: ALT (SGPT) 14 U/L (8-55); AST (SGOT) 15 U/L (5-34); Albumin 4.2 g/dL (3.5-5.0); Alkaline Phosphatase 94 U/L (40-110); Anion Gap 13 mmol/L (10-20); BUN (Urea Nitrogen) 10 mg/dL (7.0-18.7); Bilirubin, Total 0.8 mg/dL (0.2-1.2); Calc. Creatinine Clearance 0 mL/min (70-130); Carbon Dioxide 23 mmol/L (22-29); Chloride 104 mmol/L (98-107); Estimated GFR-MDRD Greater than 90; Globulin 3.2 g/dL (2.4-3.5); Glucose 97 mg/dL (70-105); Lipase 17 U/L (8-78); Potassium 3.7 mmol/L (3.5-5.1); Protein, Total 7.4 g/dL (6.0-8.3); Sodium 136 mmol/L (136-145)
[2019-12-08] MEDS ORDERED: Morphine 4 MG/ML VIAL ONE ×2 (07:35→12:00)
[2019-12-08] MEDS ORDERED: Ondansetron PF 4 MG/2 ML Vial ONE (07:35)
[2019-12-08] MEDS ORDERED: cefTRIAXone\\ROCEPHIN 250 MG VIAL ONE (09:53)
[2019-12-08] MEDS ORDERED: Azithromycin 250 MG TAB ONE (09:58)
[2019-12-08 10:42] LABS: Bacteria/HPF None Seen HPF (None Seen); Bilirubin Negative (Negative); Blood, Urine Negative (Negative); Clarity Clear (Clear); Glucose, Urine (Dipstick) Normal (Negative); Leukocyte 25 Leu/uL (Negative); Nitrite Negative (Negative); Protein, Urine (Dipstick) Negative (Neg-Trace); RBC/HPF 0-3 HPF (0-3); Squamous Epithelial 0-3 HPF (0-3); Urobilinogen Normal mg/dL (Less than 2)
[2019-12-08] MEDS ORDERED: Ketorolac Tromethamine 30 MG/ML VIAL ONE (12:00)
[2019-12-08] MEDS ORDERED: Doxycycline 100 MG CAP PO SCH (12:30)
--- NOTE | 2019-12-08 12:42 | CT ---
CT ABDOMEN AND PELVIS PERFORMED WITH CONTRAST ENHANCEMENT: HISTORY: RIGHT lower quadrant abdominal pain. FINDINGS: The lung bases are clear. The liver, spleen, pancreas, and gallbladder regions appear unremarkable. Right and left adrenal glands and right and left kidneys are normal in size. There is no significant periaortic or mesenteric adenopathy. CT OF PELVIS PERFORMED WITH CONTRAST ENHANCEMENT: The appendix is normal in size. It is retrocecal in location. Somewhat prominent follicles are seen involving the adnexa. No evidence of any significant free fluid. No adenopathy or mass. IMPRESSION: 1. Normal appendix. 2. No acute findings of the abdomen or pelvis. POS: [facility]
--- NOTE | 2019-12-08 12:43 | ULT ---
ULTRASOUND PELVIC ULTRASOUND TRANSVAGINAL DOPPLER DUPLEX: DATE: 12/08/2019 HISTORY: 29-year-old female with pelvic pain, right greater than left, and "PID" TECHNIQUE: Transabdominal transducer and endovaginal transducer used to visualize intrapelvic contents with armas scale, color-flow, and spectral analysis. FINDINGS: Uterus: 11 x 5 x 4.5 cm. Endometrial stripe: 0.5 cm (5 mm) No moderate sized or large uterine leiomyoma visualized. Right ovary: 4.5 x 3 x 2.5 cm. Left ovary: 4 x 4 by 2.5 cm. 3 x 2 x 2.5 cm right adnexal cystic lesion, somewhat complex with multiple internal echoes and/or sep tations. 2.5 x 2.5 x 2 cm left adnexal cystic lesion with a few septations. Little or no free fluid in the cul-de-sac. IMPRESSION: 1) a 3 cm complex right adnexal cystic lesion, probably a hemorrhagic ovarian cyst 2) a 2.5 cm left ovarian cyst 3) otherwise negative
[2019-12-08 15:13] VITALS: BMI 33.0
[2019-12-08] MEDS ORDERED: Iopamidol-370 76% 500 ML 1 ML ONE (15:31)
[2019-12-08] MEDS ORDERED: Ibuprofen 800 MG TAB PO SCH (16:00)
[2019-12-08] MEDS ORDERED: Acetaminophen 500 MG TAB PO SCH (18:00)
[2019-12-08 19:47] VITALS: BP 124/73; TEMP 98
--- NOTE | 2019-12-08 23:14 | HP ---
HISTORY OF PRESENT ILLNESS: The patient is a 29-year-old G2, P2 female with a several days history of right lower quadrant pain that began yesterday. She was evaluated downstairs in the emergency room and was empirically diagnosed with PID. Given the level of her pain downstairs, there was some concern about sending her home without observation and we were called for help. The patient was admitted to observation by myself and upon arrival to the floor, the patient was evaluated. She reports that her pain is much better with 15 mg of Toradol and 4 mg of morphine that had been given over the previous 4 hours. She also reports a history of chlamydia about 8 years ago, but denies any known sexually transmitted infection since. She does admit to a new sexual partner recently. She reports that she has noticed a change in her vaginal discharge that has changed in color and odor prior to the onset of her symptoms. She does report that she just finished her period a few days ago. In her evaluation downstairs, CT scan and ultrasound were both performed, which did not find any acute findings; however, did find a cyst on her right ovary that is described as being like a probably a hemorrhagic ovarian cyst on the right side with the dimensions of cystic measuring about 3 cm and endometrium being about 5 mm. The patient denies fever. She denies headache, chest pain, shortness of breath, nausea, or vomiting. PAST MEDICAL HISTORY: Negative. PAST SURGICAL HISTORY: Tonsillectomy and wisdom tooth surgery. PSYCHIATRIC HISTORY: Bipolar disorder, depression. SOCIAL HISTORY: The patient reports social drinking on a weekly basis. Reports former tobacco use and denies drug use. ALLERGIES: VANCOMYCIN. CURRENT MEDICATIONS: None. She did receive a dose of Rocephin, cefoxitin and doxycycline downstairs in the emergency room and total of 8 mg of morphine, and 15 mg of Toradol. PHYSICAL EXAMINATION: VITAL SIGNS: Blood pressure on the floor 128/83, temperature 99, pulse 91, respiratory rate of 18, saturating 98% on room air. GENERAL: She appears to be in no acute distress. She is alert, oriented, cooperative, and pleasant to interact with. HEENT: Head is normocephalic, atraumatic. LUNGS: Clear to auscultation bilaterally. HEART: Has regular rate and rhythm. ABDOMEN: Soft. She used to have some diffuse tenderness focused primarily in her lower quadrants particularly in midline. EXTREMITIES: Nontender, nonedematous. : Exam has been deferred as the patient reports that she had a exam with the ER physician and was exquisitely tender on the digital exam. ASSESSMENT AND PLAN: The patient is a 29-year-old female with likely diagnosis of pelvic inflammatory disease given the exquisite tenderness that she has been having on physical exam, and elevated white count of 14,000. The patient has been treated initially and has been admitted to the hospital for observation due to the significant pain the patient was experiencing. On arrival, the patient appears to be doing much better from a pain standpoint. She does not have any signs or symptoms of being excessively ill. We will give her 800 of ibuprofen right now and a gram of Tylenol and re-evaluate in a couple of hours and see how she is feeling. If she continues to feel like her pain is under decent control, the patient can be discharged home with oral antibiotics. She has been counseled to follow up in a couple of days with a [facility] [employer] provider or her primary provider to ensure that she continues to improve. She also was counseled that should she be discharged home today that she needs to return if she starts having fever, increasing pain, or beginning to feel really sick. Anticipate discharge either this evening or tomorrow morning. Pt had a good response with tylenol/ibuprofen. Being discharged home with doxycycline 100bid x10 days and flagyl 500mg po bid x10 days needs to f/u with Dr Antonio in one wk Job ID: [id number] [id number]
[2019-12-09 21:11] LABS: Chlamydia by PCR DETECTED (NotDetected); GC by PCR DETECTED (NotDetected)
== END 2019-12-08 20:10 | disposition home or self-care (01) ==
LOC: ERS 06:48 → 3SW 15:00
PROVIDERS: ADMIT Obstetrics & Gynecology; ATTEND Obstetrics & Gynecology
DX: N83.202 Unspecified ovarian cyst, left side (principal); N83.8 Other noninflammatory disorders of ovary, fallopian tube and broad ligament; F31.9 Bipolar disorder, unspecified; Z87.891 Personal history of nicotine dependence; Z88.1 Allergy status to other antibiotic agents
CPT/HCPCS: 74177; 76830; 76856; 80053; 83690; 84703; 85025; 87077; 87086; 87480; 87491; 87510; 87591; 87660; 96361; 96365; 96375; 96376; 99285; G0378 ×2; 81003; 81015; J0694; J0696; J1885; J2270; J2405; Q9967

== ENCOUNTER 2020-11-28 08:29 | Emergency (ER) | payer MEDICARE, OTHER ==
[2020-11-28] MEDS ORDERED: Ketorolac Tromethamine 30 MG/ML VIAL ONE (09:00)
== END 2020-11-28 09:30 | disposition home or self-care (01) ==
LOC: ERS 08:29
DX: S93.401A Sprain of unspecified ligament of right ankle, initial encounter (principal); Z87.891 Personal history of nicotine dependence; X50.1XXA Overexertion from prolonged static or awkward postures, initial encounter
CPT/HCPCS: 96372; J1885

== ENCOUNTER 2023-12-12 09:17 | Day surgery (SDC) | payer MEDICARE, MEDICAID ==
[2023-12-11 09:48] VITALS: BMI 34.0
[2023-12-12] MEDS ORDERED: Oxymetazoline HCl 0.05% (30 ML BOT) ONE ×2 (10:56→11:29)
[2023-12-12] MEDS ORDERED: Lidocaine 1% (PF) 30 ML VIAL ONE (11:29)
[2023-12-12] MEDS ORDERED: Rocuronium Bromide 10 MG/ML (10ML VIAL) ONE (11:56)
[2023-12-12] MEDS ORDERED: Dexamethasone 20 MG/5 ML VIAL ONE (11:56)
[2023-12-12] MEDS ORDERED: Ondansetron PF 4 MG/2 ML Vial ONE (11:56)
[2023-12-12] MEDS ORDERED: PROPOFOL 200 MG/20 ML VIAL ONE (11:56)
[2023-12-12 12:03] LABS: Hematocrit 38.5 % (36.0-47.0)
[2023-12-12] MEDS ORDERED: fentaNYL 50 mcg/mL 1 mL Vial ONE ×2 (12:57→13:38)
[2023-12-12] MEDS ORDERED: HYDROcodone/Acetaminophen 5/325 mg Tablet ONE (14:04)
== END 2023-12-12 14:49 | disposition home or self-care (01) ==
LOC: SDC 09:17
PROVIDERS: ATTEND Otolaryngology Plastic Surgery within the Head & Neck
PROC: 09BV8ZZ Excision of Left Ethmoid Sinus, Via Natural or Artificial Opening Endoscopic (ICD-10-PCS; principal; 2023-12-12)
PROC: 09BW8ZZ Excision of Right Sphenoid Sinus, Via Natural or Artificial Opening Endoscopic (ICD-10-PCS; 2023-12-12)
PROC: 09BX8ZZ Excision of Left Sphenoid Sinus, Via Natural or Artificial Opening Endoscopic (ICD-10-PCS; 2023-12-12)
PROC: 09BQ8ZZ Excision of Right Maxillary Sinus, Via Natural or Artificial Opening Endoscopic (ICD-10-PCS; 2023-12-12)
PROC: 09BR8ZZ Excision of Left Maxillary Sinus, Via Natural or Artificial Opening Endoscopic (ICD-10-PCS; 2023-12-12)
PROC: 09BS8ZZ Excision of Right Frontal Sinus, Via Natural or Artificial Opening Endoscopic (ICD-10-PCS; 2023-12-12)
PROC: 09BT8ZZ Excision of Left Frontal Sinus, Via Natural or Artificial Opening Endoscopic (ICD-10-PCS; 2023-12-12)
PROC: 09BU8ZZ Excision of Right Ethmoid Sinus, Via Natural or Artificial Opening Endoscopic (ICD-10-PCS; 2023-12-12)
PROC: 09TL8ZZ Resection of Nasal Turbinate, Via Natural or Artificial Opening Endoscopic (ICD-10-PCS; 2023-12-12)
PROC: 09TL8ZZ Resection of Nasal Turbinate, Via Natural or Artificial Opening Endoscopic (ICD-10-PCS; 2023-12-12)
DX: J34.3 Hypertrophy of nasal turbinates (principal); J32.4 Chronic pansinusitis; J34.89 Other specified disorders of nose and nasal sinuses; J33.9 Nasal polyp, unspecified; Z90.89 Acquired absence of other organs; Z88.1 Allergy status to other antibiotic agents
CPT/HCPCS: 30140; 31240; 31257; 31267; 31276; 85014; J1100; J2001; J2405; J2704; J3010

== ENCOUNTER 2023-12-20 13:13 | Inpatient (IN) | payer MEDICARE, MEDICAID ==
[2023-12-20 14:20] LABS: #Basophils 0.03 10x3/uL (0.0-0.2); %Basophils 0.4 % (0.0-1.0); %Eosinophils 0.7 % (0.0-10.0); %Lymphocytes 43.3 % (21.0-51.0); %Monocytes 6.5 % (0.0-10.0); %Neutrophils 48.9 % (42.0-75.0); Hematocrit 40.2 % (36.0-47.0); Hemoglobin 13.8 g/dL (12.0-16.0); Mean Corpuscular HGB CONC 34.3 g/dL (32.0-36.0); Mean Corpuscular Hemoglobin 32.2 pg (27.0-31.0); Mean Corpuscular Volume 93.9 fL (78.0-98.0); Mean Platelet Volume 10.6 fL (7.4-10.4); Platelet Count 307 10x3/uL (130-400); RBC Distribution Width 12.5 % (11.5-14.5); Red Blood Cell (RBC) Count 4.28 mill/uL (4.20-5.40)
[2023-12-20 14:25] LABS: BHCG - Serum Negative (NEGATIVE); Pregs Control Background? CLEAR/WHITE (CLR/WHITE); Pregs Control Bar Appear? YES (CONTROL BAR)
[2023-12-20 14:30] LABS: ALT (SGPT) 8 U/L (8-55); AST (SGOT) 16 U/L (5-34); Albumin 4.2 g/dL (3.5-5.0); Alkaline Phosphatase 76 U/L (40-110); Anion Gap 13 mmol/L (10-20); BUN (Urea Nitrogen) 7 mg/dL (7.0-18.7); Bilirubin, Total 0.7 mg/dL (0.2-1.2); Calc. Creatinine Clearance 0 mL/min (70-130); Calcium 9.8 mg/dL (7.8-10.44); Carbon Dioxide 21 mmol/L (22-29); Chloride 106 mmol/L (98-107); Estimated GFR 117; Globulin 3.4 g/dL (2.4-3.5); Glucose 86 mg/dL (70-105); Potassium 3.7 mmol/L (3.5-5.1); Protein, Total 7.6 g/dL (6.0-8.3); Sodium 136 mmol/L (136-145)
[2023-12-20] MEDS ORDERED: Dexamethasone 10 MG/ML VIAL ONE (15:14)
[2023-12-20] MEDS ORDERED: Morphine 4 MG/ML VIAL ONE ×3 (15:14→22:45)
[2023-12-20 16:45] LABS: Bacteria/HPF None Seen HPF (None Seen); Bilirubin Negative (Negative); Blood, Urine Negative (Negative); CAUTI Indications for Culture Dysuria,urgency,freq; Clarity Clear (Clear); Glucose, Urine (Dipstick) Normal (Negative); Ketone, Urine 10 mg/dL (Negative); Leukocyte Negative Leu/uL (Negative); Nitrite Negative (Negative); Protein, Urine (Dipstick) Negative (Neg-Trace); RBC/HPF 0-3 HPF (0-3); Specific Gravity, Urine 1.013 (1.002-1.036); Squamous Epithelial 0-3 HPF (0-3); Urobilinogen Normal mg/dL (Less than 2); WBC/HPF 0-3 HPF (0-3)
[2023-12-20 16:47] LABS: Urine Culture Reflex No No
[2023-12-21 01:08] VITALS: BMI 34.0
[2023-12-21] MEDS ORDERED: HYDROcodone/Acetaminophen 10/325 mg Tablet PO PRN ×3 (01:25→02:36)
[2023-12-21] MEDS ORDERED: Ondansetron PF 4 MG/2 ML Vial IVP PRN (01:25)
[2023-12-21] MEDS ORDERED: Ondansetron ODT 4 MG TAB PO PRN (01:25)
[2023-12-21] MEDS ORDERED: Naloxone HCl 0.4 mg/ml Vial IV PRN (02:37)
[2023-12-21 04:43] LABS: #Basophils Less than 0.03 10x3/uL (0.0-0.2); #Eosinphils Less than 0.03 10x3/uL (0.0-0.7); %Lymphocytes 10.1 % (21.0-51.0); %Monocytes 4.1 % (0.0-10.0); %Neutrophils 85.5 % (42.0-75.0); Hematocrit 38.6 % (36.0-47.0); Hemoglobin 13.4 g/dL (12.0-16.0); Mean Corpuscular HGB CONC 34.7 g/dL (32.0-36.0); Mean Corpuscular Hemoglobin 32.4 pg (27.0-31.0); Mean Corpuscular Volume 93.2 fL (78.0-98.0); Mean Platelet Volume 10.5 fL (7.4-10.4); Platelet Count 321 10x3/uL (130-400); RBC Distribution Width 12.4 % (11.5-14.5); Red Blood Cell (RBC) Count 4.14 mill/uL (4.20-5.40)
[2023-12-21 05:04] LABS: Anion Gap 11 mmol/L (10-20); BUN (Urea Nitrogen) 9 mg/dL (7.0-18.7); Calc. Creatinine Clearance 184 mL/min (70-130); Calcium 9.7 mg/dL (7.8-10.44); Carbon Dioxide 20 mmol/L (22-29); Chloride 104 mmol/L (98-107); Estimated GFR 118; Glucose 100 mg/dL (70-105); Potassium 4.1 mmol/L (3.5-5.1); Sodium 131 mmol/L (136-145)
[2023-12-21] MEDS: Ketorolac Tromethamine 30 MG (1 mL) VIAL IVP SCH (05:12)
[2023-12-21] MEDS: HYDROcodone/Acetaminophen 10/325 mg Tablet PO PRN (05:12)
[2023-12-21] MEDS: Gabapentin 300 MG CAP PO SCH (09:13)
[2023-12-21] MEDS: Enoxaparin 40 MG (0.4 mL) SYRINGE SC SCH (09:13)
[2023-12-21] MEDS: Famotidine 20 MG TAB PO SCH (09:13)
[2023-12-21] MEDS: tiZANidine HCl 4 MG TAB PO PRN (09:14)
[2023-12-21] MEDS: Morphine 4 MG/ML VIAL SLOW IVP PRN (09:14)
[2023-12-21] MEDS ORDERED: HYDROcodone/Acetaminophen 5/325 mg Tablet PO PRN (09:28)
[2023-12-21] MEDS: Polyethylene Glycol 3350 17 GM Packet PO SCH (10:28)
[2023-12-21] MEDS: predniSONE 20 MG TAB PO SCH (10:28)
[2023-12-21] MEDS ORDERED: Dexamethasone 4 MG TAB PO SCH (13:00)
[2023-12-21] MEDS: HYDROcodone/Acetaminophen 5/325 mg Tablet PO PRN (16:27)
[2023-12-22 05:52] LABS: #Basophils Less than 0.03 10x3/uL (0.0-0.2); #Eosinphils Less than 0.03 10x3/uL (0.0-0.7); %Basophils 0.1 % (0.0-1.0); %Eosinophils 0.2 % (0.0-10.0); %Lymphocytes 25.5 % (21.0-51.0); %Monocytes 6.8 % (0.0-10.0); %Neutrophils 67.2 % (42.0-75.0); Hematocrit 37.6 % (36.0-47.0); Hemoglobin 12.6 g/dL (12.0-16.0); Mean Corpuscular HGB CONC 33.5 g/dL (32.0-36.0); Mean Corpuscular Hemoglobin 31.7 pg (27.0-31.0); Mean Corpuscular Volume 94.5 fL (78.0-98.0); Mean Platelet Volume 10.9 fL (7.4-10.4); Platelet Count 322 10x3/uL (130-400); RBC Distribution Width 12.5 % (11.5-14.5); Red Blood Cell (RBC) Count 3.98 mill/uL (4.20-5.40)
[2023-12-22 06:29] LABS: Anion Gap 13 mmol/L (10-20); BUN (Urea Nitrogen) 20 mg/dL (7.0-18.7); Calc. Creatinine Clearance 164 mL/min (70-130); Calcium 9.3 mg/dL (7.8-10.44); Carbon Dioxide 22 mmol/L (22-29); Chloride 104 mmol/L (98-107); Estimated GFR 111; Glucose 82 mg/dL (70-105); Potassium 3.7 mmol/L (3.5-5.1); Sodium 135 mmol/L (136-145)
[2023-12-22] MEDS: Polyethylene Glycol 3350 17 GM Packet PO SCH (09:37)
[2023-12-22] MEDS: Dexamethasone 1 MG TAB PO SCH ×2 (10:39→13:02)
[2023-12-22] MEDS ORDERED: Dexamethasone 4 MG TAB PO SCH ×2 (15:00)
[2023-12-22] MEDS ORDERED: Dexamethasone 1 MG TAB PO SCH (15:00)
[2023-12-23] MEDS: Lactulose 20 GM (30 mL) UDCUP PO SCH (09:02)
[2023-12-23 09:27] LABS: #Basophils Less than 0.03 10x3/uL (0.0-0.2); #Eosinphils Less than 0.03 10x3/uL (0.0-0.7); %Basophils 0.1 % (0.0-1.0); %Eosinophils 0.1 % (0.0-10.0); %Monocytes 3.6 % (0.0-10.0); %Neutrophils 71.8 % (42.0-75.0); Hematocrit 36.7 % (36.0-47.0); Hemoglobin 12.6 g/dL (12.0-16.0); Mean Corpuscular HGB CONC 34.3 g/dL (32.0-36.0); Mean Corpuscular Hemoglobin 32.7 pg (27.0-31.0); Mean Corpuscular Volume 95.3 fL (78.0-98.0); Mean Platelet Volume 10.2 fL (7.4-10.4); Platelet Count 313 10x3/uL (130-400); RBC Distribution Width 12.4 % (11.5-14.5); Red Blood Cell (RBC) Count 3.85 mill/uL (4.20-5.40)
[2023-12-23 09:49] LABS: Anion Gap 14 mmol/L (10-20); BUN (Urea Nitrogen) 12 mg/dL (7.0-18.7); Calc. Creatinine Clearance 158 mL/min (70-130); Calcium 9.3 mg/dL (7.8-10.44); Carbon Dioxide 19 mmol/L (22-29); Chloride 108 mmol/L (98-107); Estimated GFR 105; Glucose 111 mg/dL (70-105); Potassium 3.5 mmol/L (3.5-5.1); Sodium 137 mmol/L (136-145)
[2023-12-23 11:35] VITALS: BP 138/85; TEMP 97.9
[2023-12-24] MEDS ORDERED: Dexamethasone 1 MG TAB PO SCH (08:00)
[2023-12-26] MEDS ORDERED: Dexamethasone 1 MG TAB PO SCH (08:00)
[2023-12-28] MEDS ORDERED: Dexamethasone 1 MG TAB PO SCH (08:00)
[2023-12-30] MEDS ORDERED: Dexamethasone 1 MG TAB PO SCH (08:00)
== END 2023-12-23 15:59 | disposition home or self-care (01) | DRG 551 ==
LOC: ERS 13:13 → SURG A 12-21 00:24 → OBSVTOIN 12-22 15:22
PROVIDERS: ADMIT Student in an Organized Health Care Education/Training Program; ATTEND Student in an Organized Health Care Education/Training Program
DX: M50.321 Other cervical disc degeneration at C4-C5 level (principal); G95.19 Other vascular myelopathies; M48.07 Spinal stenosis, lumbosacral region; M51.27 Other intervertebral disc displacement, lumbosacral region; M50.221 Other cervical disc displacement at C4-C5 level; M48.061 Spinal stenosis, lumbar region without neurogenic claudication; M51.37 Other intervertebral disc degeneration, lumbosacral region; F41.9 Anxiety disorder, unspecified; K59.00 Constipation, unspecified; Z82.3 Family history of stroke; Z88.8 Allergy status to other drugs, medicaments and biological substances; Z90.89 Acquired absence of other organs; Z87.891 Personal history of nicotine dependence
CPT/HCPCS: 36415; 72141; 72146; 72148; 80048; 80053; 81001; 84703; 85025; 86141; 96374; 96375; 96376; J1100; J1650; J1885; J2270; J7512; J8540

== ENCOUNTER 2025-04-03 11:14 | Emergency (ER) | payer MEDICAID, MEDICARE ==
[2025-04-03] MEDS ORDERED: cefTRIAXone (ROCEPHIN) 1 GM VIAL ONE (12:05)
== END 2025-04-03 12:11 | disposition home or self-care (01) ==
LOC: ERS 11:14
DX: S60.571A Other superficial bite of hand of right hand, initial encounter (principal); Y04.1XXA Assault by human bite, initial encounter; Y93.89 Activity, other specified
CPT/HCPCS: 96372; 99283; J0696